=== PATIENT | female | born 1965 | race Hispanic/Latino ===

== ENCOUNTER 2023-10-07 10:14 | Emergency (ER) | payer OTHER ==
[~2023-10-07] VITALS: Ht 157.5 cm; Wt 59.9 kg
[2023-10-07] MEDS ORDERED: DEXAMETHASONE SOD PHOSPHATE 4 MG/ML 1ML VIAL IM ONE (11:00)
[2023-10-07] MEDS ORDERED: KETOROLAC 30MG VIAL (30MG/ML) IM ONE (11:00)
[2023-10-07 12:42] LABS: APPEARANCE,URINE CLEAR (CLEAR); BILIRUBIN,URINE NEGATIVE (NEGATIVE); COLOR,URINE YELLOW (YELLOW); GLUCOSE, URINE (UA) NEGATIVE (NEGATIVE); KETONES,URINE NEGATIVE (NEGATIVE); LEUKOCYTE ESTERASE ,URINE NEGATIVE Leu/uL (NEGATIVE); NITRATE,URINE NEGATIVE (NEGATIVE); OCCULT BLOOD,URINE NEGATIVE (NEGATIVE); PROTEIN,URINE NEGATIVE (NEGATIVE); UROBILINOGEN,URINE 0.2 mg/dL (0.2-1.0)
[2023-10-07 12:46] LABS: ADD UA MICROSCOPIC NO
[2023-10-07] MEDS ORDERED: LIDO1ADH82 TP (13:17)
[2023-10-07] MEDS ORDERED: IBUP-2070 PO (13:17)
[2023-10-07 14:46] VITALS: BP 123/78; PULSE 82; RESP 18; O2SAT 99
== END 2023-10-07 14:47 | disposition home or self-care (01) ==
LOC: EDH 10:14
DX: M47.896 Other spondylosis, lumbar region (principal); M54.41 Lumbago with sciatica, right side; Z79.899 Other long term (current) drug therapy; Z90.49 Acquired absence of other specified parts of digestive tract; Z90.710 Acquired absence of both cervix and uterus
CPT/HCPCS: 99285; 72131; 81003; 96372 ×2; J1100; J1885